=== PATIENT | female | born 1950 | race Caucasian/White ===

== ENCOUNTER 2018-08-30 07:52 | Emergency (ER) | payer MEDICARE ==
[~2018-08-30] VITALS: Ht 185.4 cm; Wt 68.6 kg
--- NOTE | 2018-08-30 08:18 | NUR ---
PT PRESENTED TO ED WITH WEAKNESS. PT STATED SHE IS NAUSEATED BUT HAS NOT VOMITTED. PT STATED SHE TOOK A LONG HORSE BACK RIDE YESTERDAY AND DID NOT DRINK HARDLY ANY WATER. PT PLACED IN ROOM WITH BP AND CONT. PULSE OXIMETER. EKG DONE AND PRESENTED TO MD. ASSESSMENT COMPLETED. AWAITING MD.
[2018-08-30] MEDS ORDERED: SODIUM CHLORIDE FLUSH 10ML SYR IVF ONE (08:30)
[2018-08-30] MEDS ORDERED: SODIUM CHLORIDE 0.9% 1,000ML IVBOLUS ONE (08:30)
[2018-08-30] MEDS ORDERED: ONDANSETRON 2MG/ML, 2ML IVP ONE (08:30)
[2018-08-30 08:59] LABS: BASOPHILS # (AUTO) 0.04 x10^3/uL (0-0.1); BASOPHILS % (AUTO) 1 % (0-1); EOSINOPHILS # (AUTO) 0.12 x10^3/uL (0-0.4); EOSINOPHILS % (AUTO) 2 % (1-7); LYMPHOCYTES # (AUTO) 0.83 x10^3/uL (1-3.4); LYMPHOCYTES % (AUTO) 12 % (22-44); MD NO; MEAN CORPUSCULAR HEMOGLOBIN 30.8 pg (27.0-34.8); MEAN CORPUSCULAR HGB CONC 32.9 g/dL (32.4-35.8); MEAN CORPUSCULAR VOLUME 93.6 fL (80-100); MEAN PLATELET VOLUME 7.4 fL (7.4-10.4); MONOCYTES # (AUTO) 0.34 x10^3/uL (0.2-0.8); MONOCYTES % (AUTO) 5 % (2-9); NEUTROPHILS # (AUTO) 5.58 x10^3/uL (1.8-6.8); NEUTROPHILS % (AUTO) 81 % (42-75); PLATELET COUNT 269 x10^3/uL (130-400); RED BLOOD COUNT 4.52 x10^6/uL (3.82-5.3); RED CELL DISTRIBUTION WIDTH 12.9 % (9.6-15.2)
[2018-08-30 09:04] LABS: ALANINE AMINOTRANSFERASE 24 U/L (12-78); ALBUMIN 3.6 g/dL (3.4-5.0); ANION GAP 6 mmol/L (5-15); CALCIUM 8.7 mg/dL (8.5-10.1); CHLORIDE 106 mmol/L (98-107); CREATININE 0.78 mg/dL (0.55-1.02)
[2018-08-30 09:09] LABS: ALKALINE PHOSPHATASE 102 U/L (45-117); BILIRUBIN,TOTAL 0.4 mg/dL (0.2-1.0); CREATINE KINASE, TOTAL 107 U/L (26-192); TOTAL PROTEIN 6.7 g/dL (6.4-8.2); TROPONIN I < 0.015 ng/mL (0.000-0.045)
--- NOTE | 2018-08-30 09:21 | NUR ---
PT REFUSING IV AT THIS TIME. MD AT BEDSIDE. CT ORDERED.
--- NOTE | 2018-08-30 09:21 | NUR ---
PT ASSISTED TO BR AND CLEAN CATCH URINE SENT
[2018-08-30 09:38] LABS: MICROSCOPIC NOT IND
[2018-08-30 09:47] LABS: CULTURE INDICATED? NO
[2018-08-30] MEDS ORDERED: ONDANSETRON 2MG/ML, 2ML ONE (09:50)
--- NOTE | 2018-08-30 10:00 | NUR ---
pt awaiting ct scan
--- NOTE | 2018-08-30 10:08 | NUR ---
PT TAKEN TO CT SCAN
[2018-08-30 11:01] VITALS: BP 135/67
== END 2018-08-30 12:11 | disposition home or self-care (01) ==
LOC: ED 10:32
DX: R55 Syncope and collapse (principal); R53.1 Weakness; R11.0 Nausea
CPT/HCPCS: 36415; 70450; 80053; 81003; 82550; 84484; 85025; 93005; 96374; 99284; J2405; J7030